=== PATIENT | female | born 1955 | race Caucasian/White ===

== ENCOUNTER 2020-09-11 09:55 | Outpatient (CLI) | payer BC, SELFPAY ==
--- NOTE | ~2020-09-11 | DEXA_ITS ---
Bone Density Report Name: Joseline Nguyen Age: 65 Sex: Female Ethnicity: White Date of : 1955 Indication: postmenopausal; hysterectomy; Referring Provider: Taryn Somers Study: Bone densitometry was performed. Exam Date: September 11, 2020 Accession number: [id number] Bone Density: Region BMD T-score Z-score Classification AP Spine (L3, L4) 1.140 0.4 2.1 Normal Femoral Neck (Left) 0.836 -0.1 1.3 Normal Total Hip (Left) 1.120 1.5 2.6 Normal Total Hip Bilateral Avg 1.104 1.4 2.4 Normal Femoral Neck (Right) 0.879 0.3 1.7 Normal Total Hip (Right) 1.087 1.2 2.3 Normal World Health Organization criteria for BMD impression classify patients as: Normal (T-score at or above -1.0), Osteopenia (T-score between -1.0 and -2.5), or Osteoporosis (T-score at or below -2.5). 10-year Fracture Risk: FRAX not reported because: All T-scores for Spine Total, Hip Total, Femoral Neck at or above -1.0 Previous Exams: Region Exam Age BMD T-score BMD Change BMD Change Date g/cm2 vs Baseline vs Previous AP Spine(L3, L4) 09/11/2020 65 1.140 0.4 -0.092(-7.5%)# -0.100(-8.0%)* 08/04/2017 62 1.240 1.3 0.008(0.6%)# 0.019(1.5%) 02/09/2015 60 1.222 1.1 -0.011(-0.9%)# -0.026(-2.1%)# 11/26/2012 57 1.247 1.3 0.015(1.2%)# 0.015(1.2%)# 03/13/2009 54 1.233 1.2 Total Hip(Left) 09/11/2020 65 1.120 1.5 0.052(4.9%)# -0.117(-9.5%)* 08/04/2017 62 1.238 2.4 0.169(15.8%)# 0.096(8.4%)* 02/09/2015 60 1.142 1.6 0.073(6.8%)# 0.041(3.7%)# 11/26/2012 57 1.101 1.3 0.032(3.0%)# 0.032(3.0%)# 03/13/2009 54 1.068 1.0 Total Hip(Right) 09/11/2020 65 1.087 1.2 0.058(5.6%)# -0.081(-6.9%)* 08/04/2017 62 1.168 1.9 0.139(13.5%)# -0.044(-3.6%)* 02/09/2015 60 1.212 2.2 0.183(17.8%)# 0.186(18.1%)# 11/26/2012 57 1.026 0.7 -0.003(-0.3%)# -0.003(-0.3%)# 03/13/2009 54 1.029 0.7 *Denotes significance at 95% confidence level, LSC for AP Spine = 0.022 g/cm2, LSC for Total Hip = 0.027 g/cm2 Clinical Information Provided by Patient: Has used the following medications: Vitamin D Has the following medical conditions: Hysterectomy Patient maximum height was 60 Menopause Age: 60 No regular weight bearing exercise Drinks caffeinated beverages Onset of menses at age 14 Number of children 3 Impression: The patient has normal bone mass. The BMD for the AP Spine(L3, L4) decreased, changing
== END 2020-09-11 09:56 | disposition home or self-care (01) ==
LOC: ANHIMG 09:58
PROVIDERS: PCP Family Medicine; Visit Provider Student in an Organized Health Care Education/Training Program
DX: Z78.0 Asymptomatic menopausal state (principal)
CPT/HCPCS: 77080

== ENCOUNTER 2021-04-04 00:23 | Day surgery (SDC) | payer BC, SELFPAY ==
[2021-03-25 08:51] VITALS: BMI 58.6
[2021-04-04 08:56] VITALS: BP 147/75; PULSE 83; RESP 18; TEMP 36.2; O2SAT 98; BMI 58.8
[2021-04-04] MEDS: LACTATED RINGERS 1,000 ML 150 ML IV CONT (09:06)
--- NOTE | 2021-04-04 09:07 | WPDGICN ---
Assessment and Plan Assessment and plan (1) History of colon polyps: Code(s): Z86.010 - Personal history of colonic polyps Status: Acute Assessment and Plan: Patient was found to have colon polyps most recently 2014. Plan is for surveillance colonoscopy at this time. Consider this a 5 year intervals. (2) Family history of colonic polyps: Code(s): Z83.71 - Family history of colonic polyps Status: Acute Assessment and Plan: Patient's mother was identified as having had colon polyps. Plan is for follow-up colonoscopy at 5 year intervals. (3) Obesity (BMI 30.0-34.9): Code(s): E66.9 - Obesity, unspecified Status: Acute Assessment and Plan: Weight loss is strongly encouraged. GI Consult Note Consult date/time: 04/04/21 09:07 HPI: Joseline Nguyen is a 66 year old female Presents for screening colonoscopy. Patient does have a prior history of colon polyps most recent colonoscopy 2014. Family history is significant her mother had colon polyps as well. Patient reports that her current weight appetite bowel movements normal. She did eyes abdominal pain. She has had no bleeding. Review of Systems Review of Systems: All systems reviewed & are unremarkable except as noted in HPI and below PMFSH Past Medical History Medical History (Updated 04/04/21 @ 09:09 by Mal Corbett MD) Glaucoma History of blood transfusion Hypertension Obesity, morbid, BMI 50 or higher Postmenopausal bleeding Postoperative visit Surgical History Surgical History H/O section x3 H/O dilation and curettage 2014 Hx of breast biopsy S/P AMAN-BSO (total abdominal hysterectomy and bilateral salpingo-oophorectomy) Family History Family History Mother Diabetes mellitus Hypertension Family history of malignant neoplasm of breast in first degree relative Father Hypertension, Onset Age: 74 Acute myocardial infarction Social History Social History Smoking status: Never smoker Second hand tobacco smoke exposure: No Alcohol intake: current Substance use: never Substance use type: does not use Living arrangements: with family Spiritual care concerns: No Meds Home Medications and Allergies Home Medications Medication Instructions Recorded Confirmed Type Adults Multivitamin 1 tablet PO DAILY 05/20/19 03/25/21 History amlodipine 5 mg PO DAILY 05/20/19 03/25/21 History cholecalciferol (vitamin D3) 5,000 unit PO DAILY 05/20/19 03/25/21 History [Vitamin D3] latanoprost 1 drp OPHTHALMIC (EYE) HS 05/20/19 03/25/21 History losartan-hydrochlorothiazide 1 tablet PO DAILY 05/20/19 03/25/21 History ferrous gluconate 36 mg PO DAILY 03/25/21 03/25/21 History magnesium oxide 250 mg PO DAILY 03/25/21 03/25/21 History Allergies Allergy/AdvReac Type Severity Reaction Status Date / Time Penicillins Allergy Severe Rash Verified 04/04/21 08:55 Vital Signs Vital Signs - 24 hr 04/04/21 08:56 Temperature 97.1 F L Pulse Rate 83 Respiratory Rate 18 Blood Pressure 147/75 H Pulse Oximetry 98 Exam Narrative: Physical exam reveals patient to be alert. Vital signs stable. HEENT exam unremarkable. Patient is anicteric. Lungs are clear to auscultation and percussion. Heart is without murmur or extra sounds. Abdominal exam is somewhat obese. Bowel sounds present soft nontender with no organomegaly. Digital external rectal exam is normal.
--- NOTE | 2021-04-04 09:47 | WPDANESEPPF ---
Anes - Initial Pre Proc Eval Procedure: Operation Date: 04/04/21 09:30 Proposed Procedures p Screening Colonoscopy - Mal Corbett MD Date/Time: 04/04/21 09:47 Surgeon: Mal Corbett MD Pre Op Diagnosis: hx of colon polyps Patient Data Age: 66 Gender: F Height: 1.52 m Weight: 136.6 kg Last Vital Signs Temp 97.1 F L 04/04/21 08:56 Pulse 83 04/04/21 08:56 Resp 18 04/04/21 08:56 BP 147/75 H 04/04/21 08:56 Pulse Ox 98 04/04/21 08:56 Allergies Allergy/AdvReac Type Severity Reaction Status Date / Time Penicillins Allergy Severe Rash Verified 04/04/21 08:55 Home Medications Medication Instructions Recorded Confirmed Type Adults Multivitamin 1 tablet PO DAILY 05/20/19 03/25/21 History amlodipine 5 mg PO DAILY 05/20/19 03/25/21 History cholecalciferol (vitamin D3) 5,000 unit PO DAILY 05/20/19 03/25/21 History [Vitamin D3] latanoprost 1 drp OPHTHALMIC (EYE) HS 05/20/19 03/25/21 History losartan-hydrochlorothiazide 1 tablet PO DAILY 05/20/19 03/25/21 History ferrous gluconate 36 mg PO DAILY 03/25/21 03/25/21 History magnesium oxide 250 mg PO DAILY 03/25/21 03/25/21 History Patient hx anesthesia problems: none Family hx anesthesia problems: none Results Review: All pre-operative results and documents have been reviewed as part of the pre-operative evaluation. [facility] Past Medical History Medical History (Updated 04/04/21 @ 09:09 by Mal Corbett MD) Glaucoma History of blood transfusion Hypertension Obesity, morbid, BMI 50 or higher Postmenopausal bleeding Postoperative visit Surgical History Surgical History H/O section x3 H/O dilation and curettage 2015 Hx of breast biopsy S/P AMAN-BSO (total abdominal hysterectomy and bilateral salpingo-oophorectomy) Family History Family History Mother Diabetes mellitus Hypertension Family history of malignant neoplasm of breast in first degree relative Father Hypertension, Onset Age: 74 Acute myocardial infarction Social History Social History Smoking status: Never smoker Second hand tobacco smoke exposure: No Alcohol intake: current Substance use: never Substance use type: does not use Living arrangements: with family Spiritual care concerns: No Anes - Eval Final PreProcedure Day of Procedure 04/04/21 09:47 Patient weight: super morbidly obese Heart: regular rate and rhythm Lungs: clear to auscultation Airway: Mallampati scale class II Neurological: alert and oriented Last oral intake: >/= 8 hours ASA classification: III Emergent: no Anesthetic plan: proceed Anesthesia type and monitoring: general GIVS and standard monitoring Results Review: All pre-operative results and documents have been reviewed as part of the pre-operative evaluation. Informed Consent: The patient's anesthetic plan and its attendant risks and benefits were discussed with the patient/family/POA. Questions were solicited and answers provided to the satisfaction of the patient/family/POA.
[2021-04-04 09:51] VITALS: BP 135/43; PULSE 86; RESP 22; O2SAT 99
[2021-04-04 10:01] VITALS: BP 130/54; PULSE 76; RESP 18; O2SAT 99
[2021-04-04 10:11] VITALS: BP 123/57; PULSE 71; RESP 16; O2SAT 99
== END 2021-04-04 11:10 | disposition home or self-care (01) ==
PROVIDERS: PCP Family Medicine; Visit Provider Internal Medicine Gastroenterology
PROC: 0DJD8ZZ Inspection of Lower Intestinal Tract, Via Natural or Artificial Opening Endoscopic (ICD-10-PCS; CPT 45378; principal; 2021-04-04 09:30)
DX: Z12.11 Encounter for screening for malignant neoplasm of colon (principal); K63.5 Polyp of colon; K64.8 Other hemorrhoids; H40.9 Unspecified glaucoma; I10 Essential (primary) hypertension; E66.01 Morbid (severe) obesity due to excess calories; Z83.71 Family history of colonic polyps; Z90.710 Acquired absence of both cervix and uterus
CPT/HCPCS: 45385; 88305; J2704; J7120

== ENCOUNTER → 2022-02-28 12:06 | Outpatient (CLI) | payer MEDICARE, SELFPAY ==
--- NOTE | ~2022-02-28 | XR_ITS ---
XR knee LT min 4V 02/28/2022 12:27 Indication: Left knee pain Procedure: 4 views left knee Comparison: 02/10/2013 Findings: There is moderate tricompartment osteoarthritis of the left knee. No fracture or traumatic malalignment. There is chondrocalcinosis. No significant joint effusion. No foreign bodies. Impression: 1: Moderate osteoarthritis of the left knee. 2: Chondrocalcinosis. Reviewed, dictated and finalized at location B. Impression: 1: Moderate osteoarthritis of the left knee. 2: Chondrocalcinosis.
== END ==
PROVIDERS: PCP Physician Assistant; Visit Provider Physician Assistant
DX: M17.12 Unilateral primary osteoarthritis, left knee (principal); M11.262 Other chondrocalcinosis, left knee
CPT/HCPCS: 73564

== ENCOUNTER → 2022-05-20 11:43 | Outpatient (CLI) | payer MEDICARE, SELFPAY ==
--- NOTE | ~2022-05-20 | XR_ITS ---
EXAM: XR shoulder LT min 2V DATE: 05/20/2022 12:13 HISTORY: Left Shoulder pain for 2 weeks no injury . COMPARISON: None available. FINDINGS: Normal mineralization. No fracture or eduardo dislocation. Widened subacromial space in the internal rotation view. No lytic or blastic lesion. Mild hypertrophy at the acromioclavicular and mil d osteophytosis glenohumeral joints. Coracoid and acromial enthesopathy. No erosion or periosteal shirley nge. Soft tissues within normal limits. IMPRESSION: Glenohumeral subluxation. Mild degenerative changes at the AC joint and glenohumeral join t. Reviewed, dictated and finalized at location K. LAB OPERATOR IMPRESSION: Glenohumeral subluxation. Mild degenerative changes at the AC joint and glenohumeral joint.
== END ==
PROVIDERS: PCP Physician Assistant; Visit Provider Physician Assistant
DX: M25.512 Pain in left shoulder (principal); S43.082A Other subluxation of left shoulder joint, initial encounter
CPT/HCPCS: 73030

== ENCOUNTER 2023-03-04 18:44 | Emergency (ER) | payer MEDICARE, SELFPAY ==
--- NOTE | ~2023-03-04 | CT_ITS ---
EXAMINATION: CTA chest abdomen pelvis DATE: 03/04/2023 20:29 INDICATION: Midline abdominal pain TECHNIQUE: Computed tomographic angiography (CTA) of the chest and abdomen was performed with 100 cc of Omnipaque-350 intravenous contrast. Additional 3D reconstructions utilizing rotating maximum inten sity projection (MIP) were performed. Automated exposure control and iterative reconstruction I Love QCe were employed. The dose-length product was 1333.37 mGy-cm. COMPARISON: None FINDINGS: Chest: Lungs are clear with no pneumonia, pulmonary edema, pleural effusion or pneumothorax. Heart size is n ormal. No pericardial or pleural effusion. Calcified right hilar lymph nodes consistent with old gran ulomatous disease. Thoracic aorta is normal in caliber with no dissection. Small sliding-type hiatal hernia. No pathologically enlarged thoracic lymphadenopathy. Multiple nodular soft tissue densities t hroughout both breasts. Abdomen and pelvis: Liver, gallbladder, spleen, pancreas, bilateral adrenal glands and kidneys are normal. Appendix and c olon appear normal. There are multiple loops of mildly dilated small bowel measuring up to 3.5 cm in maximal diameter in the lower abdomen. There are closely opposed transition points on either side of the length of dilated small bowel located in the central pelvis and suspicious for a closed loop obst ruction. There is wall thickening of the dilated bowel along with surrounding mesenteric edema and fl uid which raises concern for bowel ischemia. Additional small amount of likely reactive ascites in th e deep pelvis. Bladder is normal. Abdominal aorta is normal in caliber with no dissection. No patholo gically enlarged abdominal or pelvic lymphadenopathy. Mild to moderate bilateral sacroiliitis. Mild l umbar dextrocurvature with mild spondylosis. 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 IMPRESSION: 1. Likely closed-loop small bowel obstruction with prominent mesenteric edema, small amount reactive ascites and associated wall thickening of the affected bowel suggesting secondary bowel ischemia. Rec ommend emergent surgical consultation. Dr. Ruiz discussed these findings with Dr. Fontaine at 8:4 2 PM. 2. Normal aorta. No acute cardiopulmonary disease. Reviewed, dictated and finalized at location A. IMPRESSION: 1. Likely closed-loop small bowel obstruction with prominent mesenteric edema, small amount reactive ascites and associated wall thickening of the affected prema wel suggesting secondary bowel ischemia. Recommend emergent surgical consultati on. Dr. Ruiz discussed these findings with Dr. Fontaine at 8:42 PM. 2. Normal aorta. No acute cardiopulmonary disease.
[2023-03-04 18:48] VITALS: BP 155/79; PULSE 82; RESP 18; TEMP 36.4; O2SAT 100
--- NOTE | 2023-03-04 19:08 | ECG_ITS ---
Measurements Intervals [place] Rate: 54 P: 31 CA: 137 QRS: 76 QRSD: 94 T: 51 QT: 468 QTc: 446 Interpretive Statements SINUS BRADYCARDIA COMPARED TO ECG 05/24/2019 09:14:56 SINUS BRADYCARDIA NOW PRESENT Electronically Signed On 03-05-2023 10:59:44 CDT by Carolina Gomez M.D.
[2023-03-04] MEDS: ONDANSETRON INJ 4 MG/2 ML VIAL IV PUSH ×2 (19:16→23:18)
[2023-03-04] MEDS: HYDROmorphone HCL INJ (*CRX) 1 MG/ML SYR IV PUSH (19:16)
[2023-03-04] MEDS: SODIUM CHLORIDE 0.9% IV 1,000 ML 999 ML IV CONT (19:16)
[2023-03-04 19:19] LABS: Basophils Absolute Auto 0.1 K/mm3 (0.0-0.1); Basophils Percent Auto 0.4 % (0.2-1.2); Eosinophils Absolute Auto 0.1 K/mm3 (0-0.3); Eosinophils Percent Auto 0.4 % (0-4.4); Hematocrit 45.2 % (37.0-47.0); Hemoglobin 15.4 g/dL (12.0-15.0); Immature Granulocyte Absolute 0.07 K/mm3 (0.00-0.031); Immature Granulocyte Percent A 0.5 % (0-0.5); Lymphocytes Absolute Auto 2.19 K/mm3 (0.9-3.2); Lymphocytes Percent Auto 15.4 % (18.3-44.2); Mean Corpuscular HGB Conc 34.1 g/dl (32-36); Mean Corpuscular Volume 88.1 fl (80-100); Mean Platelet Volume 9.4 fl (7.4-10.4); Monocytes Absolute Auto 0.8 K/mm3 (0.1-0.6); Monocytes Percent Auto 5.3 % (2.6-8.5); Neutrophils Absolute Auto 11.1 K/mm3 (1.3-6.7); Platelet Count Result 412 k/mm3 (150-375); Red Blood Count 5.13 M/mm3 (4.2-5.4); Red Cell Distribution Width 12.7 % (11.5-14.5); White Blood Count 14.2 K/mm3 (4.5-10.0)
[2023-03-04 19:29] LABS: Lactic Acid Reflex 2.5 mmol/L (0.7-2.0)
[2023-03-04 19:31] LABS: Prothrombin Time 13.8 Seconds (11.1-14.7)
[2023-03-04 19:35] LABS: Alanine Aminotransferase 30 U/L (6-35); Albumin Level 4.2 g/dL (3.5-5.1); Alkaline Phosphatase 94 U/L (38-126); Anion Gap 7 mmol/L (8-16); Aspartate Amino Transferase 30 U/L (14-36); Bilirubin,Total 0.6 mg/dL (0.2-1.3); Blood Urea Nitrogen 31 mg/dL (7-17); Calcium 9.6 mg/dL (8.4-10.2); Carbon Dioxide 24 mmol/L (22-30); Chloride 101 mmol/L (98-107); Estimated CRCL calculation 67 ml/min; Estimated Glomerular Filt Rate > 60; Glucose 161 mg/dL (65-110); Lipase 174 U/L (23-300); Sodium 132 mmol/L (137-145)
[2023-03-04 19:40] LABS: Potassium 4.1 mmol/L (3.4-5.0)
[2023-03-04 19:41] LABS: Troponin I < 0.012 ng/mL (0.000-0.034)
[2023-03-04 20:51] VITALS: PULSE 58; RESP 16; O2SAT 100
--- NOTE | 2023-03-04 20:59 | ED.ABDPAIN ---
HPI - Abdominal Pain General Chief Complaint: Abdominal Pain Stated Complaint: abd pain Time Seen by Provider: 03/04/23 19:02 History of Present Illness HPI narrative: This is a 68-year-old female, past history of duodenal switch in 2021, who presents emergency department complaining of severe abdominal pain beginning approximately 1 hour prior to arrival. The patient states her pain is sharp, rated 10/10, located in the right lower quadrant without radiation. This is associated with nonbloody vomiting. The patient states she passed gas and stool earlier today, but has not since the pain started. She has no other complaints at this time. Related Data Home Medications Medication Instructions Recorded Confirmed cholecalciferol (vitamin D3) 125 5,000 unit PO DAILY 05/20/19 03/25/21 mcg (5,000 unit) tablet (Vitamin D3) latanoprost 0.005 % eye drops 1 drp ophthalmic (eye) HS 05/20/19 03/25/21 multivit with minerals-iron 18 1 tablet PO DAILY 05/20/19 03/25/21 mg-folic ac 400 mcg-vit K 25 mcg tablet (Adults Multivitamin) magnesium oxide 250 mg PO DAILY 03/25/21 03/25/21 losartan 50 mg tablet 50 mg PO DAILY 03/20/22 turmeric 400 mg capsule mg PO 03/20/22 Allergies Allergy/AdvReac Type Severity Reaction Status Date / Time Penicillins Allergy Severe Rash Verified 03/04/23 19:15 Review of Systems Review of Systems: CONSTITUTIONAL: Denies fever, chills, or sweats. CARDIOVASCULAR: Denies chest pain, palpitations, or edema. RESPIRATORY: Denies cough or dyspnea. GASTROINTESTINAL: Abdominal pain, nausea and vomiting denies diarrhea. GENITOURINARY: Denies dysuria or hematuria. SKIN: Denies rash or itching. MUSCULOSKELETAL: Denies back pain, joint pain, or myalgia. NEUROLOGIC: Denies headache, numbness, dizziness, or weakness. PSYCHIATRIC: Denies anxiety or depression. [facility] Past Medical History Medical History Glaucoma History of colon polyps Hypertension Hypertriglyceridemia Vitamin D deficiency Surgical History Surgical History H/O section 1977, 1981, 1984 H/O dilation and curettage 2004 and hysteroscopy, 12/26/2014 History of colonoscopy polyp resection 2006, 2007, 2010, 2014, 2020 History of gastric surgery partial gastric resection (duodenal switch) 08/16/2021 Hx of breast biopsy S/P AMAN-BSO (total abdominal hysterectomy and bilateral salpingo-oophorectomy) 05/2019 Family History Family History Mother Diabetes mellitus Hypertension Family history of malignant neoplasm of breast in first degree relative Father Hypertension, Onset Age: 74 Acute myocardial infarction Social History Social History Smoking status: Never smoker Second hand tobacco smoke exposure: No Alcohol intake: current Substance use: never Substance use type: does not use Lack of Transportation: No Lack of Food: Never True Current Housing: I Have Housing Concerned About Future Housing: No Difficulty Paying Gas/Electric Bills: No Difficulty Paying for Meds: No Currently Unemployed: YES Education: Bachelor's Degree Difficulty w/ Childcare or Family Care: No Living arrangements: with family Occupation/Education: retired Gender identity (if verbalized by the patient): Female Sexual Orientation (if Verbalized by the Patient): Straight or Heterosexual Spiritual care concerns: No Exam Narrative: GENERAL: Well-developed, well-nourished, in moderate to severe distress due to pain. HEAD: Normocephalic, atraumatic. EYES: PERRLA and EOMI. CHEST: Clear to auscultation. No respiratory distress. No wheezes rales or rhonchi HEART: Regular rate and rhythm. No murmur heard. Normal peripheral pulses. ABDOMEN: Soft, tender to palpation, greater
[2023-03-04] MEDS: HYDROmorphone HCL INJ (*CRX) 1 MG/ML SYR 0.5 MG IV PUSH ×2 (21:09→22:57)
[2023-03-04 21:59] VITALS: BP 154/68; PULSE 57; RESP 17; TEMP 36.4; O2SAT 98
[2023-03-04 22:16] LABS: Reflex Lactic Acid Yes or No Add Lactic
[2023-03-04] MEDS: SODIUM CHLORIDE 0.9% IV 1,000 ML 150 ML IV CONT (22:57)
[2023-03-04 23:07] VITALS: BP 168/92; PULSE 59; RESP 17; TEMP 36.6; O2SAT 100
[2023-03-04] MEDS: CEFEPIME 2 GM/NS 50 ML 2 GM/50 ML BAG IVPB (23:54)
[2023-03-04] MEDS: MORPHINE SULFATE (*CRX) 4 MG/ML INJ IV PUSH (23:59)
[2023-03-05 00:54] VITALS: BP 134/67; PULSE 63; RESP 19; TEMP 36.8; O2SAT 97
== END 2023-03-05 00:56 | disposition short-term general hospital (02) ==
PROVIDERS: Emergency Medicine; Emergency Provider Preventive Medicine Aerospace Medicine; PCP Family Medicine
DX: K56.609 Unspecified intestinal obstruction, unspecified as to partial versus complete obstruction (principal); K55.019 Acute (reversible) ischemia of small intestine, extent unspecified; I10 Essential (primary) hypertension; E78.1 Pure hyperglyceridemia; E55.9 Vitamin D deficiency, unspecified; H40.9 Unspecified glaucoma; Z86.010 Personal history of colon polyps; Z90.710 Acquired absence of both cervix and uterus; Z98.84 Bariatric surgery status; R00.1 Bradycardia, unspecified
CPT/HCPCS: 36415; 71275; 74174; 80053; 83605; 83690; 84484; 85025; 85610; 93005; 96361; 96365; 96375; 96376; 99284; 99285; J0692; J1170; J2270; J2405; J7030; Q9967

== ENCOUNTER 2024-04-15 13:44 | Outpatient (CLI) | payer MEDICARE, SELFPAY ==
--- NOTE | ~2024-04-15 | US_ITS ---
EXAMINATION: US soft tissue UE LT DATE: 04/15/2024 13:59 INDICATION: Left upper limb mass. TECHNIQUE: Multiple grayscale and Doppler ultrasound images of the left upper limb were obtained. COMPARISON: None FINDINGS: There is a 3.9 x 1.5 x 5.7 cm subcutaneous mass in the left antecubital fossa with similar echogenicity and echotexture to normal subcutaneous fat, consistent with a lipoma. IMPRESSION: 1. Subcutaneous lipoma in left antecubital fossa. Reviewed, dictated and finalized at location A.
== END 2024-04-15 13:45 | disposition home or self-care (01) ==
LOC: MICIMG 13:44
PROVIDERS: PCP Family Medicine; Visit Provider Plastic Surgery
DX: D17.22 Benign lipomatous neoplasm of skin and subcutaneous tissue of left arm (principal); R22.32 Localized swelling, mass and lump, left upper limb
CPT/HCPCS: 76882

== ENCOUNTER 2024-05-30 10:41 | Outpatient (CLI) | payer MEDICARE, SELFPAY ==
--- NOTE | ~2024-05-30 | DEXA_ITS ---
Bone Density Report Name: IVÁN RAMIREZ Age: 69 Sex: Female Ethnicity: White Date of : 1955 Indication: postmenopausal; screening for osteoporosis; height loss; hysterectomy; Referring Provider: IDALIA, BACILIO Kirkpatrick Study: Bone densitometry was performed. Exam Date: May 30, 2024 Accession number: [id number] Bone Density: Region BMD T-score Z-score Classification AP Spine(L1-L4) 1.094 0.4 2.3 Normal Femoral Neck (Left) 0.665 -1.7 0.0 Osteopenia Total Hip (Left) 0.895 -0.4 1.0 Normal Femoral Neck (Right) 0.664 -1.7 0.0 Osteopenia Total Hip (Right) 0.821 -1.0 0.4 Normal Total Hip Mean 0.858 -0.7 0.7 Normal World Health Organization criteria for BMD impression classify patients as: Normal (T-score at or above -1.0), Osteopenia (T-score between -1.0 and -2.5), or Osteoporosis (T-score at or below -2.5). 10-year Fracture Risk(1): Major Osteoporotic Fracture 8.6% Hip Fracture 1.0% Reported Risk Factors: [place] (), Neck BMD=0.665, BMI=39.7 (1) FRAX(R) Version 3.08. Fracture probability calculated for an untreated patient. Fracture probability may be lower if the patient has received treatment. Previous Exams: Region Exam Age BMD T-score BMD Change BMD Change Date g/cm2 vs Baseline vs Previous AP Spine (L1-L4) 05/30/2024 69 1.094 0.4 -0.219 (-16.7% -0.219 (-16.7% 11/26/2012 57 1.313 2.4 Total Hip(Left) 05/30/2024 69 0.895 -0.4 -0.206 (-18.7% -0.225 (-20.1% 09/11/2020 65 1.120 1.5 0.020 (1.8%)# -0.117 (-9.5%) 08/04/2017 62 1.238 2.4 0.137 (12.5%)# 0.096 (8.4%)* 02/09/2015 60 1.142 1.6 0.041 (3.7%)# 0.041 (3.7%)# 11/26/2012 57 1.101 1.3 Total Hip(Right) 05/30/2024 69 0.821 -1.0 -0.205 (-20.0% -0.266 (-24.5% 09/11/2020 65 1.087 1.2 0.061 (5.9%)# -0.081 (-6.9%) 08/04/2017 62 1.168 1.9 0.142 (13.8%)# -0.044 (-3.6%) 02/09/2015 60 1.212 2.2 0.186 (18.1%)# 0.186 (18.1%)# 11/26/2012 57 1.026 0.7 *Denotes significance at 95% confidence level, LSC for AP Spine = 0.022 g/cm2, LSC for Total Hip = 0.027 g/cm2 # Denotes dissimilar scan types or analysis methods Clinical Information Provided by Patient: Has used the following medications: Vitamin D, Calcium Has the following medical conditions: Hysterectomy Patient maximum height was 60.0 No regular weight bearing exercise Drinks caffeinated beverages Onset of menses at age 14 Number of children 3 Impression: The patient has low bone mass, based on the Left Femoral Neck T-score. The patient has an estimated ten-year risk of hip fracture of 1% and an estimated ten-year risk of major fracture of 8.6%, based on the WHO FRAX algorithm. The BMD for the Total Hip(Left) decreased, changing by -20.1% since the last DXA exam. The BMD for the Total Hip(Right) decreased, changing by -24.5% since the last DXA exam. Discussion: BONE DENSITY IS LOW AT ONE OR MORE SKELETAL SITES. This patient's lowest T-score is low at one or more skeletal sites. It meets the World Health Organization's (WHO) criteria for ?low bone mass? (T-score between -1.0 and -2.5). The patient's 10-year risk of fracture as calculated by FRAX is less than the threshold where pharmacological therapy is recommended by the National Osteoporosis Foundation (NOF). However, all treatment decisions require clinical judgment and consideration of individual patient factors, including patient preferences, comorbidities, previous drug use, risk factors not captured in the FRAX model (e.g., frailty, falls, vitamin D deficiency, increased bone turnover, interval significant decline in bone density) and possible under or overestimation of fracture risk by FRAX. The patient should follow a healthful lifestyle (good nutrition with adequate calcium and vitamin D, and appropriate weight-bearing exercise). Follow-Up: Consider repeating this study in 2 years to reassess this patient's status, or sooner if there is some new clinical indication. Reported by: RAOUL on 05/30/2024 11:24:00 AM. Reviewed, dictated and finalized at location Murphy MOORE
== END 2024-05-30 10:42 | disposition home or self-care (01) ==
PROVIDERS: PCP Family Medicine; Visit Provider Physician Assistant
DX: M85.89 Other specified disorders of bone density and structure, multiple sites (principal); Z78.0 Asymptomatic menopausal state
CPT/HCPCS: 77080

== ENCOUNTER 2025-05-26 10:47 | Outpatient (CLI) | payer MEDICARE, SELFPAY ==
--- NOTE | 2025-05-26 | ECG_ITS ---
Test Date: 2025-05-26 11:29:10 Measurements Intervals [place] Rate: 61 P: 8 [place]: 147 QRS: 55 QRSD: 102 T: 4 QT: 404 QTc: 409 Interpretive Statements SINUS RHYTHM LOW QRS VOLTAGE IN PRECORDIAL LEADS [QRS DEFLECTION < 1.0 mV IN CHEST LEADS] BORDERLINE ECG No previous ECG available for comparison Electronically Signed On 05-26-2025 13:26:05 OPHTHALMIC TECH by Graham Lemos M.D.
--- NOTE | ~2025-05-26 | XR_ITS ---
EXAMINATION: XR chest 2V, 05/26/2025 11:44 ABALONE DIVER HISTORY: DYSPNEA ON EXERTION COMPARISON: No comparisons available. Technique: 2 views obtained. Findings: The lungs are clear, no effusion. No pneumothorax. Heart is normal size. Mediastinal and hilar contours are within normal limits. Bony thorax no acute abnormality. Impression: No acute cardiopulmonary abnormality. Reviewed, dictated and finalized at location P. ONE DIVER Impression: No acute cardiopulmonary abnormality.
[2025-05-26 11:44] LABS: Hematocrit 43.3 % (37.0-47.0); Hemoglobin 14.9 g/dL (12.0-15.0); Mean Corpuscular HGB Conc 34.4 g/dl (32-36); Mean Corpuscular Hemoglobin 30.2 pg (26-34); Mean Corpuscular Volume 87.8 fl (80-100); Platelet Count Result 277 k/mm3 (150-375); Red Blood Count 4.93 M/mm3 (4.2-5.4); White Blood Count 8.4 K/mm3 (4.5-10.0)
[2025-05-26 11:56] LABS: INR 1.1; Partial Thromboplastin Time 31.4 Seconds (22.3-36.8); Prothrombin Time 14.4 Seconds (11.1-14.7)
[2025-05-26 12:02] LABS: Alanine Aminotransferase 20 U/L (6-35); Albumin Level 3.8 g/dL (3.5-5.1); Alkaline Phosphatase 88 U/L (38-126); Anion Gap 6 mmol/L (4-12); Aspartate Amino Transferase 36 U/L (14-36); Bilirubin,Total 0.6 mg/dL (0.2-1.3); Blood Urea Nitrogen 21 mg/dL (7-17); Calcium 9.2 mg/dL (8.4-10.2); Carbon Dioxide 29 mmol/L (22-30); Chloride 104 mmol/L (98-107); Estimated Glomerular Filt Rate > 60; Glucose 88 mg/dL (65-110); Potassium 4.0 mmol/L (3.4-5.0); Sodium 139 mmol/L (137-145); Total Protein 7.1 g/dL (6.3-8.2)
== END 2025-05-26 10:48 | disposition home or self-care (01) ==
PROVIDERS: PCP Family Medicine; Visit Provider Surgery
DX: R06.00 Dyspnea, unspecified (principal); K82.4 Cholesterolosis of gallbladder; Z51.81 Encounter for therapeutic drug level monitoring
CPT/HCPCS: 36415; 71046; 80053; 85027; 85610; 85730; 93005